=== PATIENT | female | born 1950 | race Caucasian/White ===

== ENCOUNTER 2018-06-02 16:58 | Emergency (ER) | payer MEDICARE ==
[~2018-06-02] VITALS: Ht 157.5 cm; Wt 56.7 kg
[2018-06-02 18:15] LABS: ABSOLUTE EOSINOPHILS 0.1 thou/uL (0.0-0.7); ABSOLUTE LYMPHOCYTES 1.9 thou/uL (0.8-5.3); ABSOLUTE MONOCYTES 0.4 thou/uL (0.0-1.2); ABSOLUTE NEUTROPHILS 3.9 thou/uL (1.6-8.1); BASOPHILS 0.7 %; EOSINOPHILS 1.4 %; HEMATOCRIT 42.1 % (37.0-47.0); HEMOGLOBIN 14.2 gm/dL (12.0-15.0); LYMPHOCYTES 30.2 %; MCH 32.2 pg (26.0-34.0); MCHC 33.6 g/dL (28.0-37.0); MCV 95.7 fL (80.0-100.0); MPV 8.8 fl. (7.2-11.1); NUCLEATED RBCS 0 /100WBC; PLATELET COUNT* 175 thou/uL (150-400); POLYS 61.7 %; RDW-CV 13.2 % (10.5-14.5); WBC 6.3 thou/uL (4.0-11.0)
[2018-06-02 18:28] LABS: CREATININE 0.9 mg/dL (0.6-1.3); POTASSIUM 3.9 mmol/L (3.5-5.1)
[2018-06-02 18:30] LABS: APTT 29.4 Seconds (25.0-31.3); PROTIME 10.2 Seconds (9.20-11.50)
[2018-06-02 18:32] LABS: ALBUMIN 3.4 g/dL (3.4-5.0); TOTAL BILIRUBIN 0.3 mg/dL (<0.1-1.0); TOTAL PROTEIN 6.4 g/dL (6.4-8.2)
[2018-06-02 19:23] VITALS: BP 188/73
== END 2018-06-02 19:23 | disposition left against medical advice (07) ==
LOC: M.ERS 16:58
PROVIDERS: Nurse Practitioner Family
DX: H53.9 Unspecified visual disturbance (principal); Z90.49 Acquired absence of other specified parts of digestive tract

== ENCOUNTER 2020-04-04 19:05 | Emergency (ER) | payer MEDICARE ==
[~2020-04-04] VITALS: Ht 157.5 cm; Wt 56.7 kg
[2020-04-04 20:06] LABS: ABSOLUTE BASOPHILS 0.1 thou/uL (0.0-0.2); ABSOLUTE LYMPHOCYTES 1.7 thou/uL (0.8-5.3); ABSOLUTE MONOCYTES 0.4 thou/uL (0.0-1.2); ABSOLUTE NEUTROPHILS 4.6 thou/uL (1.6-8.1); BASOPHILS 0.9 %; EOSINOPHILS 0.7 %; HEMATOCRIT 41.7 % (37.0-47.0); HEMOGLOBIN 14.3 gm/dL (12.0-15.0); LYMPHOCYTES 25.4 %; MCH 32.3 pg (26.0-34.0); MCHC 34.4 g/dL (28.0-37.0); MONOCYTES 6.4 %; MPV 8.8 fl. (7.2-11.1); NUCLEATED RBCS 0 /100WBC; PLATELET COUNT* 182 thou/uL (150-400); POLYS 66.6 %; RBC 4.43 mil/uL (4.20-5.00); RDW-CV 13.3 % (10.5-14.5); WBC 6.9 thou/uL (4.0-11.0)
[2020-04-04 20:18] LABS: PROTIME 10.6 Seconds (9.20-11.50)
[2020-04-04 20:21] LABS: CALCIUM 8.3 mg/dL (8.5-10.1); CREATININE 0.9 mg/dL (0.6-1.3); POTASSIUM 3.4 mmol/L (3.5-5.1)
[2020-04-04 20:34] LABS: ALBUMIN 3.5 g/dL (3.4-5.0); TOTAL BILIRUBIN 0.4 mg/dL (<0.1-1.0); TOTAL PROTEIN 6.7 g/dL (6.4-8.2)
[2020-04-04] MEDS ORDERED: METOPROLOL SUCC25 M1 PO (22:16)
[2020-04-04 22:53] VITALS: BP 154/86
--- NOTE | 2020-04-06 15:38 | EKG ---
[place] [address] ELECTROCARDIOGRAM REPORT Name: REZA GAMA Room: [facility]#: [id number] Admission: 04/04/20 Attend Phys: Discharge: 04/04/20 Date of : 52 Date of Service: 04/04/201936 Report #: [id number] THIS REPORT FOR: //name// [facility] ED Test Date: 2020-04-04 Test Time: 19:37:04 Pat Name: REZA GAMA Department: Room: Gender: [employer]member: [place] : 1950 Requested By: Ludwin Flores Order Number: [id number] MD: Westley Seth Measurements Intervals [place] Rate: 101 P: 32 KS: 142 QRS: 23 QRSD: 90 T: 12 QT: 349 QTc: 453 Interpretive Statements Sinus tachycardia Multiple ventricular premature complexes Probable left atrial enlargement Probable left ventricular hypertrophy No previous ECG available for comparison Electronically Signed On 04-06-2020 15:36:29 CDT by Westley Seth [email or web address] <ELECTRONICALLY SIGNED> By: Westley Seth MD, [facility] 04/06/20 153 36 36 Westley Seth MD, FAC /EPI
== END 2020-04-04 22:57 | disposition home or self-care (01) ==
LOC: M.ERS 19:05
PROVIDERS: Emergency Medicine Emergency Medical Services
DX: I10 Essential (primary) hypertension (principal); F17.210 Nicotine dependence, cigarettes, uncomplicated

== ENCOUNTER → 2020-05-06 | Outpatient (CLI) | payer MEDICARE ==
[~2020-05-06] MED LIST: METOPROLOL SUCC25 M1 PO
--- NOTE | 2020-05-06 14:34 | 2DMMODE ---
[place] [address] 2 D/M-MODE ECHOCARDIOGRAM Name: REZA GAMA Room: [facility]#: [id number] Admission: 05/06/20 Attend Phys: Abigail Shell RN Discharge: Date of : 52 Date of Service: 05/06/20 1433 Report #: [id number] THIS REPORT FOR: cc: FAM - No family physician/PCP FAM - No family physician/PCP Rudi Leos MD [facility] ~ APPROVED REPORT Study performed: 05/06/2020 10:11:37 EXAM: Comprehensive 2D, Doppler, and color-flow Echocardiogram Patient Location: Out-Patient BSA: 1.60 HR: 67 bpm BP: 150/60 mmHg Other Information Study Quality: Good Indications Palpitations 2D Dimensions IVSd: 11.18 (7-11mm) LVOT Diam: 20.45 (18-24mm) LVDd: 43.79 mm PWd: 10.45 (7-11mm) Ascending Ao: 35.32 (22-36mm) LVDs: 28.47 (25-40mm) Aortic Root: 28.15 mm Volumes Left Atrial Volume (Systole) LA ESV Index: 15.90 mL/m2 Aortic Valve AoV Peak Gilberto.: 1.10 m/s AO Peak Gr.: 4.84 mmHg LVOT Max P.05 mmHg AO Mean Gr.: 2.89 mmHg LVOT Mean P.94 mmHg LVOT Max V: 0.72 m/s AO V2 VTI: 23.40 cm LVOT Mean V: 0.44 m/s ADELA (VTI): 2.18 cm2 LVOT V1 VTI: 15.51 cm Mitral Valve E/A Ratio: 0.50 [place] [address] 2 D/M-MODE ECHOCARDIOGRAM Name: REZA GAMA Room: [facility]#: [id number] Admission: 05/06/20 Attend Phys: Abigail Shell RN Discharge: Date of : 52 Date of Service: 05/06/20 1433 Report #: [id number] MV Decel. Time: 364.66 ms MV E Max Gilberto.: 0.39 m/s MV PHT: 105.75 ms MVA (PHT): 2.08 cm2 TDI E/Lateral E': 9.75 E/Medial E': 9.75 Medial E' Gilberto.: 0.04 m/s Lateral E' Gilberto.: 0.04 m/s Pulmonary Valve PV Peak Gilberto.: 0.53 m/s PV Peak Gr.: 1.12 mmHg Left Ventricle The left ventricle is normal size. There is normal LV segmental wall motion. There is normal left ventricular wall thickness. Left ventricular systolic function is normal. The left ventricular ejection fraction is within the normal range. LVEF is 50%. Grade I - abnormal relaxation pattern. Right Ventricle The right ventricle is normal size. The right ventricular systolic function is normal. Atria The left atrium size is normal. The right atrium size is normal. Aortic Valve Mild aortic valve sclerosis. trace aortic regurgitation is present. There is no aortic valvular stenosis. Mitral Valve There is mitral annular calcification. Mild mitral regurgitation. No evidence of mitral valve stenosis. Tricuspid Valve The tricuspid valve is normal in structure. There is no tricuspid valve regurgitation noted. Pulmonic Valve The pulmonary valve is normal in structure. Mild pulmonic regurgitation. Great Vessels The aortic root is normal in size. IVC [place] [address] 2 D/M-MODE ECHOCARDIOGRAM Name: REZA GAMA [id number] Admission: 05/06/20 Attend Phys: Abigail Shell RN Discharge: Date of : 52 Date of Service: 05/06/20 1433 Report #: [id number] collapses >50% with inspiration. Pericardium There is no pericardial effusion. <Conclusion> LVEF is 50%. Mild aortic valve sclerosis. Mild mitral regurgitation. <ELECTRONICALLY SIGNED> By: Rudi Leos MD, [facility] 05/06/20 1433 1433 143 Rudi Leos MD, [facility] /INF
== END ==
LOC: M.CRD 10:00
PROVIDERS: ATTEND Registered Nurse
DX: I08.8 Other rheumatic multiple valve diseases (principal); R00.2 Palpitations